=== PATIENT | female | born 1995 | race Caucasian/White ===

== ENCOUNTER 2017-07-27 22:30 | Emergency (ER) | payer SELFPAY ==
[2017-07-28 00:17] VITALS: BP 136/73; PULSE 58; TEMP 98.6; BMI 30.4
--- NOTE | 2017-07-28 01:00 | PDOC ---
History of Present Illness <Melva Barahona - Last Filed: 07/28/17 00:57> - General History Source: Patient Exam Limitations: No Limitations - History of Present Illness Initial Comments: 07/28/17 01:01 The patient is a 22-year-old female with no significant past medical history, and presents to the emergency department with abdominal pain since yesterday. She reports the abdominal pain is located in the epigastric region, 5/10 in severity, and worsened when eating. She suspects she may be , as her LMP was on 06/16/17. She also notes of right-sided back pain on Friday before the abdominal pain started. The patient denies chest pain, shortness of breath, headache and dizziness. The patient denies fever, chills, nausea, vomit, diarrhea and constipation. The patient denies dysuria, frequency, urgency and hematuria. LMP: 06/16/17 Allergies: NKDA Past Surgical History: None reported Social History: No toxic habits reported <Leslie Boyd - Last Filed: 07/28/17 01:22> <Madeleine Jean-Baptiste - Last Filed: 07/28/17 02:29> - General Chief Complaint: Pain Stated Complaint: STOMACH PAIN Time Seen by Provider: 07/28/17 00:52 Past History - Suicide/Smoking/Psychosocial Hx Smoking History: Never smoked Have you smoked in the past 12 months: No Information on smoking cessation initiated: No Hx Alcohol Use: No Drug/Substance Use Hx: No Substance Use Type: None <Melva Barahona - Last Filed: 07/28/17 00:57> <Leslie Boyd - Last Filed: 07/28/17 01:22> <Madeleine Jean-Baptiste - Last Filed: 07/28/17 02:29> - Past Medical History Allergies/Adverse Reactions: Allergies Allergy/AdvReac Type Severity Reaction Status Date / Time No Known Allergies Allergy Verified 07/28/17 00:15 Home Medications: Ambulatory Orders Cephalexin [Keflex] 500 mg PO BID #14 capsule 06/27/16 Review of Systems - Review of Systems Able to Perform ROS?: Yes Comments:: GENERAL/CONSTITUTIONAL: No fever or chills. No weakness. HEAD, EYES, EARS, NOSE AND THROAT: No change in vision. No ear pain or discharge. No sore throat. CARDIOVASCULAR: No chest pain or shortness of breath. RESPIRATORY: No cough, wheezing, or hemoptysis. GASTROINTESTINAL: +Suprapubic pain, +nausea. No vomiting, diarrhea or constipation. GENITOURINARY: No dysuria, frequency, or change in urination. MUSCULOSKELETAL: No joint or muscle swelling or pain. No neck or back pain. SKIN: No rash NEUROLOGIC: No headache, vertigo, loss of consciousness, or change in strength/ sensation. ENDOCRINE: No increased thirst. No abnormal weight change. HEMATOLOGIC/LYMPHATIC: No anemia, easy bleeding, or history of blood clots. ALLERGIC/IMMUNOLOGIC: No hives or skin allergy. <Melva Barahona - Last Filed: 07/28/17 00:57> - Review of Systems Able to Perform ROS?: Yes <Leslie Boyd - Last Filed: 07/28/17 01:22> *Physical Exam - Vital Signs Last Vital Signs Temp Pulse Resp BP Pulse Ox 98.6 F 58 L 12 136/73 100 07/28/17 00:15 07/28/17 00:15 07/28/17 00:15 07/28/17 00:15 07/28/17 00:15 - Physical Exam Comments: GENERAL: Awake, alert, and fully oriented, in no acute distress HEAD: No signs of trauma EYES: PERRLA, EOMI, sclera anicteric, conjunctiva clear ENT: Auricles normal inspection, hearing grossly normal, nares patent, oropharynx clear without exudates. Moist mucosa NECK: Normal ROM, supple, no lymphadenopathy, JVD, or masses LUNGS: Breath sounds equal, clear to auscultation bilaterally. No wheezes, and no crackles HEART: Regular rate and rhythm, normal S1 and S2, no murmurs, rubs or gallops ABDOMEN: Soft, mild suprapubic/LLQ tenderness, normoactive bowel sounds. No guarding, no rebound. No masses EXTREMITIES: Normal range of motion, no edema. No clubbing or cyanosis. No cords, erythema, or tenderness NEUROLOGICAL: Cranial nerves II through XII grossly intact. Normal speech, normal gait SKIN: Warm, Dry, normal turgor, no rashes or lesions noted. <Melva Barahona - Last Filed: 07/28/17 00:57> - Vital Signs Last Vital Signs Temp Pulse Resp BP Pulse Ox 98.6 F 58 L 12 136/73 100 07/28/17 00:15 07/28/17 00:15 07/28/17 00:15 07/28/17 00:15 07/28/17 00:15 <Leslie Boyd - Last Filed: 07/28/17 01:22> - Vital Signs Last Vital Signs Temp Pulse Resp BP Pulse Ox 98.6 F 58 L 12 136/73 100 07/28/17 00:15 07/28/17 00:15 07/28/17 00:15 07/28/17 00:15 07/28/17 00:15 <Madeleine Jean-Baptiste - Last Filed: 07/28/17 02:29> ED Treatment Course - ADDITIONAL ORDERS Additional order review: Laboratory Results 07/28/17 00:51 Urine Color Yellow Urine Appearance Slcloudy Urine pH 6.0 Urine Protein Negative Urine Glucose (UA) Negative Urine Ketones 1+ H Urine Blood Negative Urine Nitrite Negative Urine Bilirubin Negative Urine Urobilinogen Negative Urine HCG, Qual Positive <Madeleine Jean-Baptiste - Last Filed: 07/28/17 02:29> Medical Decision Making - Medical Decision Making 07/28/17 02:27 Patient Name: ULISSES ASHBY THIS IS A PRELIMINARY REPORT FROM [facility] DATE OF SERVICE: 2017-07-28 01:21:53 IMAGES: 58 EXAM: US OBSTETRIC HISTORY:Abdominal pain COMPARISON: None. FINDINGS:There is a single intrauterine gestation. Estimated gestational age is 8 weeks and 6 days. cardiac activity is documented at 159 beats per minute. Right ovary measures 3.0 cm. Left ovary measures 3.6 cm. There is vascular activity bilaterally IMPRESSION: Live intrauterine gestation at 8 weeks and 6 days <Madeleine Jean-Baptiste - Last Filed: 07/28/17 02:29> *DC/Admit/Observation/Transfer <Melva Barahona - Last Filed: 07/28/17 00:57> - Attestations Scribe Attestion: 07/28/17 01:22 Documentation prepared by Leslie Boyd, acting as medical coding instructor for Melav Barahona MD. <Leslie Boyd - Last Filed: 07/28/17 01:22> - Discharge Dispostion Admit: No <Madeleine Jean-Baptiste - Last Filed: 07/28/17 02:29> Diagnosis at time of Disposition: Abdominal pain affecting - Discharge Dispostion Disposition: HOME Condition at time of disposition: Stable - Patient Instructions Printed Discharge Instructions: DI for Abdominal Pain -- Early
[2017-07-28 01:07] LABS: URINE APPEARANCE SLCLOUDY; URINE BILIRUBIN NEGATIVE (NEGATIVE); URINE BLOOD NEGATIVE (NEGATIVE); URINE COLOR YELLOW; URINE GLUCOSE (UA) NEGATIVE (NEGATIVE); URINE KETONE 1+ (NEGATIVE); URINE NITRITE NEGATIVE (NEGATIVE); URINE PROTEIN NEGATIVE (NEGATIVE); URINE UROBILINOGEN NEGATIVE mg/dL (0.2-1.0)
[2017-07-28 11:44] LABS: URINE LEUK ESTERASE Negative (NEGATIVE)
== END 2017-07-28 03:01 | disposition home or self-care (01) ==
LOC: JER 22:30
DX: O26.91 Pregnancy related conditions, unspecified, first trimester (principal); Z3A.08 8 weeks gestation of pregnancy; R10.9 Unspecified abdominal pain
CPT/HCPCS: 36415; 76817-TC; 81003; 84702; 84703; 99282-25

== ENCOUNTER 2018-03-02 11:47 | Inpatient (IN) | payer OTHER ==
[2018-03-02 13:10] LABS: ACTIVATED PTT 27.1 SECONDS (26.9-34.4)
[2018-03-02 13:17] LABS: ANION GAP 6 (8-16); BLOOD UREA NITROGEN 5 mg/dL (7-18); CHLORIDE 108 mmol/L (98-107); CO2 25 mmol/L (21-32); CREATININE 0.5 mg/dL (0.55-1.02); GLUCOSE,RANDOM 78 mg/dL (74-106); POTASSIUM 4.2 mmol/L (3.5-5.1); SODIUM 139 mmol/L (136-145)
[2018-03-02 13:24] LABS: BASO % 0.3 % (0-2.0); EOS % 1.1 % (0-4.5); HEMATOCRIT 34.2 % (32.4-45.2); HEMOGLOBIN 11.5 GM/dL (10.7-15.3); LYMPH % 22.3 % (8-40); MCHC 33.6 g/dl (32.0-36.0); MEAN CELL VOLUME 89.2 fl (80-96); MEAN PLT VOLUME 7.9 fl (7.5-11.1); MONO % 7.7 % (3.8-10.2); NEUT % 68.6 % (42.8-82.8); PLATELET COUNT 209 K/MM3 (134-434); RBC 3.83 M/mm3 (3.60-5.2); RDW 13.9 % (11.6-15.6); WHITE BLOOD COUNT 6.5 K/mm3 (4.0-10.0)
[2018-03-02 13:42] LABS: INR 0.91 (0.82-1.09); PROTHROMBIN TIME (PATIENT) 10.3 SEC (9.7-13.0)
[2018-03-02 14:11] VITALS: BMI 30.2
[2018-03-02] MEDS ORDERED: DINOPROSTONE 10 MG VAGINAL SUPPOSITORY VG ONE (15:10)
[2018-03-02] MEDS ORDERED: DEXTROSE 5%-LACTATED RINGERS 1,000 ML IV ONE (15:30)
[2018-03-02] MEDS ORDERED: ACETAMINOPHEN 325 MG TABLET (FP) ONE (16:57)
[2018-03-02] MEDS ORDERED: ACETAMINOPHEN 325 MG TABLET (FP) PO ONE (17:00)
[2018-03-02] MEDS: DEXTROSE 5%-LACTATED RINGERS 1,000 ML IV SCH (18:30)
--- NOTE | 2018-03-02 18:34 | HP ---
Past Medical History - Admission Chief Complaint: Low fluid History of Present Illness: 22 yo , LMP 05/26/17, EDC 03/02/18, seen for sonogram today and was found to have low YUE. She was admitted for induction of labor at 40 weeks. History Source: Patient Limitations to Obtaining History: No Limitations - Past Medical History ...: 2 ...Para: 0 ...Term: 0 ...: 0 ...Spon : 0 ...Induced : 1 ...Multiple Gestation: 0 ...LMP: 05/26/17 ...EDC by Sono: 03/02/18 - Past Surgical History Past Surgical History: Yes: None Hx Myomectomy: No Hx Transabdominal Cerclage: No - Smoking History Smoking history: Never smoked Have you smoked in the past 12 months: No - Alcohol/Substance Use Hx Alcohol Use: No - Social History History of Recent Travel: No Home Medications - Allergies Allergies/Adverse Reactions: Allergies Allergy/AdvReac Type Severity Reaction Status Date / Time No Known Allergies Allergy Verified 03/02/18 14:34 - Home Medications Home Medications: Ambulatory Orders Vit 108/Iron/Folic AC [ One Tablet] 1 tablet PO DAILY 03/02/18 Valacyclovir HCl [Valtrex] 500 mg PO DAILY 03/02/18 Review of Systems - Review of Systems Constitutional: reports: No Symptoms Eyes: reports: No Symptoms HENT: reports: No Symptoms Neck: reports: No Symptoms Cardiovascular: reports: No Symptoms Respiratory: reports: No Symptoms Gastrointestinal: reports: No Symptoms Genitourinary: reports: No Symptoms Breasts: reports: No Symptoms Reported Musculoskeletal: reports: No Symptoms Integumentary: reports: No Symptoms Neurological: reports: No Symptoms Endocrine: reports: No Symptoms Hematology/Lymphatic: reports: No Symptoms Psychiatric: reports: No Symptoms Pain Intensity: 2 Physical Exam - Maternity Vital Signs: Vital Signs Temperature 98.2 F 03/02/18 17:00 Pulse Rate 63 03/02/18 17:00 Respiratory Rate 20 03/02/18 17:00 Blood Pressure 102/63 03/02/18 17:00 O2 Sat by Pulse Oximetry (%) Constitutional: Yes: Well Nourished Eyes: Yes: Conjunctiva Clear HENT: Yes: Atraumatic Neck: Yes: Supple Cardiovascular: Yes: Regular Rate and Rhythm Lungs: Clear to auscultation - Abdominal Exam/OB Number of Fetuses: Single Presentation: Vertex - Vaginal Exam/OB Dilatation (cm): 0 Presentation: Vertex/Position - Physical Exam Integumentary: Yes: WNL ...Motor Strength: WNL Psychiatric: Yes: Alert, Oriented - Labs Lab Results: CBC, BMP 03/02/18 12:25 03/02/18 12:25 Problem List - Problems (1) Oligohydramnios antepartum Code(s): O41.00X0 - OLIGOHYDRAMNIOS, UNSP TRIMESTER, NOT APPLICABLE OR UNSP (2) 40 weeks gestation of Code(s): Z3A.40 - 40 WEEKS GESTATION OF Assessment/Plan IUP @ 40 weeks Oligohydramnios Cervidil induction
[2018-03-02] MEDS ORDERED: BUTORPHANOL TARTRATE 1 MG/ML VIAL ONE ×2 (21:57)
[2018-03-02] MEDS ORDERED: PROMETHAZINE HCL 25 MG/1 ML VIAL ONE (21:58)
[2018-03-02] MEDS: BUTORPHANOL TARTRATE 1 MG/ML VIAL IVPUSH PRN (22:15)
[2018-03-02] MEDS: PROMETHAZINE HCL 25 MG/1 ML VIAL IVPUSH PRN (22:15)
[2018-03-03] MEDS: DEXTROSE 5%-LACTATED RINGERS 1,000 ML IV SCH (01:00)
[2018-03-03] MEDS ORDERED: PROMETHAZINE HCL 25 MG/1 ML VIAL ONE (04:48)
[2018-03-03] MEDS ORDERED: BUTORPHANOL TARTRATE 1 MG/ML VIAL ONE ×2 (04:48)
[2018-03-03] MEDS: BUTORPHANOL TARTRATE 1 MG/ML VIAL IVPUSH PRN (04:50)
[2018-03-03] MEDS: PROMETHAZINE HCL 25 MG/1 ML VIAL IVPUSH PRN (04:50)
[2018-03-03] MEDS ORDERED: OXYTOCIN 30 UNITS in 0.9% NS 30 UNIT/500 ML INFUS.BAG IVPB SCH (06:10)
[2018-03-03] MEDS ORDERED: OXYTOCIN 20 UNITS in 0.9% NS 20 UNIT/1,000 ML INFUS.BAG IV ONE (06:13)
--- NOTE | 2018-03-03 06:17 | PN ---
Progress Note (short form) - Note Progress Note: Patient seen and evaluated, she's lying comfortably in bed. She's status post cervidil. FHR : Reassuring [place] : + regular contractions VE : / -1 Intact A / P : Oligo hydramnios S/P cervidil induction Pitocin augmentation Analgesia as needed Anticipate Problem List - Problems (1) Oligohydramnios antepartum Code(s): O41.00X0 - OLIGOHYDRAMNIOS, UNSP TRIMESTER, NOT APPLICABLE OR UNSP (2) 40 weeks gestation of Code(s): Z3A.40 - 40 WEEKS GESTATION OF
[2018-03-03] MEDS ORDERED: FENTANYL/BUPIVACAINE/NS/PF - PCEA - 50 ML DISP.SYRIN EP ONE ×2 (08:04→12:27)
[2018-03-03] MEDS ORDERED: NALOXONE HCL 0.4 MG/ML VIAL IVPUSH PRN (11:14)
[2018-03-03] MEDS ORDERED: FENTANYL/BUPIVACAINE/NS/PF - PCEA - 50 ML DISP.SYRIN EP SCH ×2 (11:15→11:30)
[2018-03-03] MEDS ORDERED: LIDOCAINE HCL 1% PRESERVATIVE FREE - 30ML VIAL ONE (13:13)
[2018-03-03] MEDS ORDERED: BENZOCAINE 20% 57 GM BOTTLE TP PRN (13:56)
[2018-03-03] MEDS ORDERED: WITCH HAZEL 50% (TUCKS) 40 PAD/JAR PAD TP PRN (13:56)
[2018-03-03] MEDS ORDERED: BISACODYL 10 MG SUPP.RECT RC PRN (13:56)
[2018-03-03] MEDS ORDERED: METHYLERGONOVINE MALEATE 0.2 MG/1 ML AMP IM PRN (13:56)
[2018-03-03] MEDS ORDERED: oxyCODONE HCL 5 MG TABLET PO PRN (13:56)
[2018-03-03] MEDS ORDERED: BENZOCAINE 28 GM HEMORRHOIDAL OINTMENT TP PRN (13:56)
[2018-03-03] MEDS ORDERED: D5W-LR W/ 20 UNITS OXYTOCIN 20 UNIT/1,000 ML INFUS.BAG IV SCH (14:00)
[2018-03-03 14:13] LABS: VENOUS PH 7.32 (7.32-7.42)
[2018-03-03 14:14] LABS: ARTERIAL BLD GAS O2 SATURATION 30.6 % (90-98.9); ARTERIAL BLOOD GAS BASE EXCESS -6.7 meq/l (-2-2); ARTERIAL BLOOD GAS PCO2 68.8 mmHg (35-45); ARTERIAL BLOOD GAS PO2 21.4 mmHg (80-100); ARTERIAL BLOOD GAS pH 7.16 (7.35-7.45); VENOUS PC02 41.1 mmHg (38-52); VENOUS PO2 34.4 mmHg (28-48)
[2018-03-03] MEDS: ACETAMINOPHEN 325 MG TABLET (FP) PO PRN (20:58)
[2018-03-03] MEDS: IBUPROFEN 600 MG TABLET (FP) PO PRN (20:58)
[2018-03-03] MEDS: FERROUS SO4 325 MG TABLET (FP) PO SCH (21:00)
[2018-03-04] MEDS: ACETAMINOPHEN 325 MG TABLET (FP) PO PRN (08:33)
[2018-03-04] MEDS: IBUPROFEN 600 MG TABLET (FP) PO PRN ×2 (08:34→17:21)
--- NOTE | 2018-03-04 08:34 | PN ---
Post Progress Note - Subjective Subjective: c/o cramps, & perineal soreness Post Day: 1 Type of Delivery: Vital Signs: Vital Signs Temperature 97.7 F 03/04/18 06:00 Pulse Rate 71 03/04/18 06:00 Respiratory Rate 20 03/04/18 06:00 Blood Pressure 98/65 03/04/18 06:00 O2 Sat by Pulse Oximetry (%) 100 03/03/18 14:35 Breast Exam: Yes: Soft, Other (BF ). No: Engorged Uterus: Yes: Fundus Firm, Fundus below umbilicus, Non-tender Lochia: Yes: Rubra Lochia, amount: Moderate Extremities: Yes: Calves non-tender Perineum: Yes: Episiotomy (healing well ) Activity: Ambulating - Labs Labs: CBC WBC 6.5 K/mm3 (4.0-10.0) 03/02/18 12:25 RBC 3.83 M/mm3 (3.60-5.2) 03/02/18 12:25 Hgb 11.5 GM/dL (10.7-15.3) D 03/02/18 12:25 Hct 34.2 % (32.4-45.2) 03/02/18 12:25 MCV 89.2 fl (80-96) 03/02/18 12:25 MCH 30.0 pg (25.7-33.7) 03/02/18 12:25 MCHC 33.6 g/dl (32.0-36.0) 03/02/18 12:25 RDW 13.9 % (11.6-15.6) 03/02/18 12:25 Plt Count 209 K/MM3 (134-434) D 03/02/18 12:25 MPV 7.9 fl (7.5-11.1) 03/02/18 12:25 Neutrophils % 68.6 % (42.8-82.8) 03/02/18 12:25 Lymphocytes % 22.3 % (8-40) D 03/02/18 12:25 Monocytes % 7.7 % (3.8-10.2) 03/02/18 12:25 Eosinophils % 1.1 % (0-4.5) 03/02/18 12:25 Basophils % 0.3 % (0-2.0) 03/02/18 12:25 Problem List - Problems (1) care following vaginal delivery Code(s): Z39.2 - ENCOUNTER FOR ROUTINE FOLLOW-UP Assessment/Plan primigravda delivered Plan ct pp care discharge tomorrow cbc pending
[2018-03-04 08:56] LABS: BASO % 0.2 % (0-2.0); EOS % 0.7 % (0-4.5); HEMATOCRIT 30.2 % (32.4-45.2); HEMOGLOBIN 10.2 GM/dL (10.7-15.3); LYMPH % 19.7 % (8-40); MCH 30.9 pg (25.7-33.7); MCHC 33.7 g/dl (32.0-36.0); MEAN CELL VOLUME 91.7 fl (80-96); MONO % 7.7 % (3.8-10.2); NEUT % 71.7 % (42.8-82.8); PLATELET COUNT 165 K/MM3 (134-434); RBC 3.29 M/mm3 (3.60-5.2); RDW 14.3 % (11.6-15.6); WHITE BLOOD COUNT 9.3 K/mm3 (4.0-10.0)
[2018-03-04] MEDS: FERROUS SO4 325 MG TABLET (FP) PO SCH ×2 (09:15→21:36)
[2018-03-04] MEDS: PRENATAL VITAMINS W/ FOLIC ACID TABLET (FP) PO SCH (09:15)
[2018-03-04] MEDS ORDERED: SENNOSIDES/DOCUSATE COMBO (SENNA PLUS) TABLET (UD) PO PRN (22:00)
[2018-03-05] MEDS: ACETAMINOPHEN 325 MG TABLET (FP) PO PRN ×2 (00:01→06:34)
[2018-03-05] MEDS: IBUPROFEN 600 MG TABLET (FP) PO PRN ×2 (06:33)
[2018-03-05] MEDS: PRENATAL VITAMINS W/ FOLIC ACID TABLET (FP) PO SCH (09:47)
[2018-03-05] MEDS: FERROUS SO4 325 MG TABLET (FP) PO SCH (09:47)
[2018-03-05 10:30] VITALS: BP 109/70; PULSE 70; TEMP 98.5
--- NOTE | 2018-03-05 13:22 | DS ---
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 Vital Signs: Vital Signs Temperature 98.5 F 03/05/18 10:00 Pulse Rate 70 03/05/18 10:00 Respiratory Rate 20 03/05/18 10:00 Blood Pressure 109/70 03/05/18 10:00 O2 Sat by Pulse Oximetry (%) 100 03/03/18 14:35 Constitutional: Yes: Well Nourished, No Distress, Calm Eyes: Yes: WNL, Conjunctiva Clear, EOM Intact HENT: Yes: WNL, Atraumatic, Normocephalic Neck: Yes: WNL, Supple, Trachea Midline Cardiovascular: Yes: WNL, Regular Rate and Rhythm Respiratory: Yes: WNL, Regular, CTA Bilaterally Gastrointestinal: Yes: WNL ...Rectal Exam: Yes: WNL Renal/: Yes: WNL ....Post : Yes: Uterus firm, Uterus non-tender, Slight lochia rubra Breast(s): Yes: WNL Musculoskeletal: Yes: WNL Extremities: Yes: WNL Edema: No Integumentary: Yes: WNL Neurological: Yes: WNL, Alert, Oriented ...Motor Strength: WNL Psychiatric: Yes: WNL, Alert, Oriented Labs: CBC, BMP 03/04/18 08:00 03/02/18 12:25 Delivery - Delivery Vaginal Delivery: Spontaneous (no complication) Type of Anesthesia: Local, Epidural Episiotomy/Laceration: Midline EBL (cc): 300 Delivery, Single - Stages of Labor Date 1st Stage Initiatied: 03/02/18 Time 1st Stage Initiated: 10:15 Date 2nd Stage Initiated: 03/03/18 Time 2nd Stage Initiated: 13:05 Date of Delivery: 03/03/18 Time of Delivery: 13:37 Time Placenta Delivered: 13:52 Placenta: Yes: Spontaneous - 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 Infant Gender: Male Weight: 5 lb 15 oz Position: OA Total Hours ROM (Hrs/Mins): 3 hours 57 minutes - 1 Minute Total Score: 9 5 Minutes Total Score: 9 - Feeding Plan Initial Plan: Elected not to breastfeed exclusively throughout hospitalization Discharge Summary Reason For Visit: INDUCTION OF LABOR Current Active Problems 40 weeks gestation of (Acute) Oligohydramnios antepartum (Acute) care following vaginal delivery (Acute) Condition: Good - Instructions Referrals: Chano De Leon MD [Staff Physician] - Disposition: HOME - Home Medications Comprehensive Discharge Medication List: Ambulatory Orders Vit 108/Iron/Folic AC [ One Tablet] 1 tablet PO DAILY 03/02/18 Valacyclovir HCl [Valtrex] 500 mg PO DAILY 03/02/18 Ibuprofen [Motrin -] 600 mg PO QID #28 tablet 03/05/18
== END 2018-03-05 12:50 | disposition home or self-care (01) | DRG 560 ==
LOC: JLDR 11:47 → J3W 03-03 17:00
PROVIDERS: ADMIT Obstetrics & Gynecology; ATTEND Obstetrics & Gynecology
PROC: 3E0P7VZ Introduction of Hormone into Female Reproductive, Via Natural or Artificial Opening (ICD-10-PCS; 2018-03-02)
PROC: 0W8NXZZ Division of Female Perineum, External Approach (ICD-10-PCS; principal; 2018-03-03)
PROC: 10E0XZZ Delivery of Products of Conception, External Approach (ICD-10-PCS; 2018-03-03)
DX: O48.0 Post-term pregnancy (principal); Z3A.40 40 weeks gestation of pregnancy; Z37.0 Single live birth; O41.01X0 Oligohydramnios, first trimester, not applicable or unspecified
CPT/HCPCS: 36415; 36600; 59409; 71046-TC-FY; 80048; 82803; 85025; 85610; 85730; 86593; 86850; 86900; 86901

== ENCOUNTER 2018-07-10 08:35 | Emergency (ER) | payer OTHER ==
[2018-07-10 08:43] VITALS: BP 117/76; PULSE 71; TEMP 98.2; BMI 28.3
[2018-07-10] MEDS ORDERED: KETOROLAC TROMETHAMINE 30 MG/1 ML VIAL IVPUSH ONE (09:15)
[2018-07-10] MEDS ORDERED: SODIUM CHLORIDE 1,000 ML IV STA (09:16)
[2018-07-10] MEDS ORDERED: KETOROLAC TROMETHAMINE 30 MG/1 ML VIAL ONE (09:29)
[2018-07-10 09:48] LABS: BASO % 0.5 % (0-2.0); EOS % 2.4 % (0-4.5); HEMATOCRIT 37.2 % (32.4-45.2); HEMOGLOBIN 12.8 GM/dL (10.7-15.3); LYMPH % 32.1 % (8-40); MCH 29.6 pg (25.7-33.7); MCHC 34.3 g/dl (32.0-36.0); MEAN CELL VOLUME 86.3 fl (80-96); MEAN PLT VOLUME 8.2 fl (7.5-11.1); MONO % 8.6 % (3.8-10.2); NEUT % 56.4 % (42.8-82.8); PLATELET COUNT 263 K/MM3 (134-434); RBC 4.31 M/mm3 (3.60-5.2); RDW 12.7 % (11.6-15.6); WHITE BLOOD COUNT 6.2 K/mm3 (4.0-10.0)
--- NOTE | 2018-07-10 09:53 | PDOC ---
History of Present Illness - General Chief Complaint: Pain, Acute Stated Complaint: RT SIDE PAIN Time Seen by Provider: 07/10/18 09:09 History Source: Patient - History of Present Illness Timing/Duration: reports: constant Quality: reports: severe Abdominal Pain Onset Location: reports: RUQ Pain Radiation: reports: back Past History - Past Medical History Allergies/Adverse Reactions: Allergies Allergy/AdvReac Type Severity Reaction Status Date / Time No Known Allergies Allergy Verified 07/10/18 11:33 Home Medications: Ambulatory Orders Ibuprofen [Motrin -] 600 mg PO QID PRN 07/10/18 Asthma: No Cancer: No Cardiac Disorders: No COPD: No Diabetes: No HTN: No Seizures: No Thyroid Disease: No - Immunization History Immunization Up to Date: No - Suicide/Smoking/Psychosocial Hx Smoking History: Never smoked Have you smoked in the past 12 months: No Hx Alcohol Use: No Drug/Substance Use Hx: No Substance Use Type: None Hx Substance Use Treatment: No Review of Systems - Review of Systems Constitutional: No: Chills, Fever ABD/GI: Yes: Abdominal cramping. No: Blood Streaked Bowels, Diarrhea, Nausea, Rectal Bleeding, Vomiting : No: Dysuria, Discharge, Hematuria *Physical Exam - Vital Signs Last Vital Signs Temp Pulse Resp BP Pulse Ox 98.2 F 71 16 117/76 100 07/10/18 08:41 07/10/18 08:41 07/10/18 08:41 07/10/18 08:41 07/10/18 08:41 - Physical Exam General Appearance: Yes: Appropriately Dressed. No: Apparent Distress HEENT: positive: Normal Voice Neck: positive: Supple Respiratory/Chest: negative: Respiratory Distress Gastrointestinal/Abdominal: positive: Normal Bowel Sounds, Tender (to RUQ, neg murpehys), Soft. negative: Distended, Guarding, Rebound Musculoskeletal: negative: CVA Tenderness Integumentary: positive: Dry, Warm Neurologic: positive: Fully Oriented, Alert, Normal Mood/Affect ED Treatment Course - LABORATORY CBC & Chemistry Diagram: 07/10/18 09:20 07/10/18 09:20 - RADIOLOGY Radiology Studies Ordered: Category Date Time Status ABDOMEN US -LIMITED [US] Stat Ultrasound 07/10/18 09:16 Ordered - Medications Given in the ED: ED Medications Discontinued Medications Generic Name Dose Route Start Last Admin Trade Name Freq PRN Reason Stop Dose Admin Ketorolac Tromethamine 30 mg 07/10/18 09:15 07/10/18 09:34 Toradol Injection - IVPUSH 07/10/18 09:16 30 mg ONCE ONE Administration Medical Decision Making - Medical Decision Making 07/10/18 09:50 23 yo F, h/o gallstones on US in [place] 2 years ago, here w/ severe RUQ pain radiating to back that started this am. Took OTC w/ no relief. No n/v/f/c, change to BM, dysuria or vaginal discharge. States he has similar pain in the past but not this constant or severe See exam Biliary colic, r/o acute jesus -pain control -labs -US 07/10/18 11:48 Labs unremarkable. Ultrasound read as gallstones but no evidence of acute jesus. On reassessment, patient states pain has since resolved with toradol. Now informs me that she is currently breast-feeding. Will dc with instructions to take Tylenol as needed. Patient also reports that she has PMD appointment next week and will get referral for surgeon *DC/Admit/Observation/Transfer Diagnosis at time of Disposition: Biliary colic - Discharge Dispostion Disposition: HOME Condition at time of disposition: Improved - Referrals Referrals: Janett Gomez MD [Primary Care Provider] - - Patient Instructions Printed Discharge Instructions: DI for Biliary Colic Additional Instructions: Your workup in the ER reveals that you have gallstones. Take Tylenol as needed for pain and follow-up with your PMD next week for possible surgery referral Print Language: SPA - Post Discharge Activity
[2018-07-10 10:27] LABS: ALBUMIN 3.8 g/dl (3.4-5.0); ALK PHOS 118 U/L (45-117); ANION GAP 7 MMOL/L (8-16); BILIRUBIN,TOTAL 0.2 mg/dL (0.2-1); BLOOD UREA NITROGEN 12 mg/dL (7-18); CHLORIDE 108 mmol/L (98-107); CO2 26 mmol/L (21-32); CREATININE 0.5 mg/dL (0.55-1.3); GLUCOSE,RANDOM 99 mg/dL (74-106); LIPASE 139 U/L (73-393); POTASSIUM 4.3 mmol/L (3.5-5.1); SGOT/AST 22 U/L (15-37); SGPT/ALT 32 U/L (13-61); SODIUM 142 mmol/L (136-145); TOT PROT 7.6 g/dl (6.4-8.2)
[2018-07-10 11:07] LABS: URINE APPEARANCE CLEAR; URINE BILIRUBIN NEGATIVE (<2.0 mg/dL); URINE COLOR YELLOW; URINE GLUCOSE (UA) NEGATIVE (NEGATIVE); URINE KETONE NEGATIVE (NEGATIVE); URINE NITRITE NEGATIVE (NEGATIVE); URINE PROTEIN NEGATIVE (NEGATIVE)
[2018-07-10 11:20] LABS: URINE LEUK ESTERASE 3+ (NEGATIVE)
[2018-07-10 11:23] LABS: EPI CELLS RARE /HPF (FEW); URINE MUCUS MANY
== END 2018-07-10 11:55 | disposition home or self-care (01) ==
LOC: JER 08:35
PROC: 3E0333Z Introduction of Anti-inflammatory into Peripheral Vein, Percutaneous Approach (ICD-10-PCS; principal; 2018-07-10)
PROC: 3E0337Z Introduction of Electrolytic and Water Balance Substance into Peripheral Vein, Percutaneous Approach (ICD-10-PCS; 2018-07-10)
DX: K80.50 Calculus of bile duct without cholangitis or cholecystitis without obstruction (principal)
CPT/HCPCS: 36415; 76705-TC; 80053; 81003; 81015; 83690; 84703; 85025; 96361; 96374; 99282-25; J7030

== ENCOUNTER 2018-08-06 04:28 | Emergency (ER) | payer OTHER ==
--- NOTE | 2018-08-06 04:38 | PDOC ---
History of Present Illness - General Stated Complaint: PAIN LEFT SIDE Time Seen by Provider: 08/06/18 04:36 - History of Present Illness Initial Comments: 08/06/18 04:37 23 yo F with h/o cholelithiasis who p/w RUQ and epigastria abdominal pain. Patient reports acute onset of sharp, unremitting, RUQ abdominal pain, beginning at 1:00 AM. Pain non positional and non pleuritic. No identifiable alleviators. + nausea without vomiting beginning at time of abdominal pain. Normal stools and bowel habits. Reports eating "greasy food" this evening. Patient denies Palpitations, F/C, CP, SOB, urinary complaints, hematuria, diarrhea, constipation, BPR, lightheadedness, weakness, sensory changes. PMHx: as noted above Surgical: Denies h/o abdominal surgery ROS: as noted SHx: Denies Etoh, IVDA, tobacco use Allergies: NKDA Past History - Past Medical History Allergies/Adverse Reactions: Allergies Allergy/AdvReac Type Severity Reaction Status Date / Time No Known Allergies Allergy Verified 08/06/18 05:05 Home Medications: Ambulatory Orders Ibuprofen [Motrin -] 600 mg PO QID PRN 07/10/18 Ondansetron HCl [Zofran] 4 mg PO BID PRN #21 tablet MDD 2 tab 08/06/18 Ranitidine [Zantac -] 150 mg PO DAILY PRN #21 tablet MDD 2 tab 08/06/18 Asthma: No Cancer: No Cardiac Disorders: No COPD: No Diabetes: No HTN: No Seizures: No Thyroid Disease: No - Immunization History Immunization Up to Date: No - Suicide/Smoking/Psychosocial Hx Smoking History: Never smoked Have you smoked in the past 12 months: No Hx Alcohol Use: No Drug/Substance Use Hx: No Substance Use Type: None Hx Substance Use Treatment: No Review of Systems - Review of Systems Comments:: 08/06/18 04:37 GENERAL/CONSTITUTIONAL: No fever or chills. No weakness. HEAD, EYES, EARS, NOSE AND THROAT: No change in vision. No ear pain or discharge. No sore throat. CARDIOVASCULAR: No chest pain or shortness of breath RESPIRATORY: No cough, wheezing, or hemoptysis. GASTROINTESTINAL: + Abdominal pain, nausea, vomiting. No diarrhea or constipation. GENITOURINARY: No dysuria, frequency, or change in urination. MUSCULOSKELETAL: No joint or muscle swelling or pain. No neck or back pain. SKIN: No rash NEUROLOGIC: No headache, vertigo, loss of consciousness, or change in strength/ sensation. ENDOCRINE: No increased thirst. No abnormal weight change HEMATOLOGIC/LYMPHATIC: No anemia, easy bleeding, or history of blood clots. ALLERGIC/IMMUNOLOGIC: No hives or skin allergy. *Physical Exam - Physical Exam Comments: 08/06/18 04:38 GENERAL: Awake, alert, and fully oriented, in no acute distress HEAD: No signs of trauma, normocephalic, atraumatic EYES: PERRLA, EOMI, sclera anicteric, conjunctiva clear ENT: Hearing grossly normal, nares patent, oropharynx clear without exudates. Moist mucosa NECK: Normal ROM, supple, no lymphadenopathy, JVD, or masses LUNGS: No distress, speaks full sentences, clear to auscultation bilaterally HEART: Regular rate and rhythm, normal S1 and S2, no murmurs, rubs or gallops, peripheral pulses normal and equal bilaterally. ABDOMEN: + RUQ, and epigatsric ttp. Normoactive bowel sounds. No guarding, no rebound, no rigidity. No masses. Neg CVA ttp. EXTREMITIES : Normal inspection, Normal range of motion, no edema. No clubbing or cyanosis. SKIN: Warm, Dry, normal turgor, no rashes or lesions noted ED Treatment Course - LABORATORY CBC & Chemistry Diagram: 08/06/18 05:35 08/06/18 05:35 Medical Decision Making - Medical Decision Making 08/06/18 04:52 23 yo F with h/o cholelithiasis who p/w RUQ and epigastria abdominal pain. VSS, AF. + RUQ and epigastric ttp. Possible biliary dz. vs. gastritis, or pancreatitis. Low suspicion appendicitis, AAA, Ao dissection, mesenteric ischemia, ovarian pathology. Differential also includes colitis, gastroenteritis. Although unlikely will consider urinary pathology. Ed Course: CBC,CMP, Lipase, UA, HCG Maloox, Famotidine, Zofran, Tylenol, NS RUQ U/S 08/06/18 05:00 Ranitidine and Zofran sent to pharmacy 08/06/18 07:39 CBC, CMP, Lipase: Unremarkable Patient left AMA. Refused U/S despite conversation of risk and benefits. *DC/Admit/Observation/Transfer Diagnosis at time of Disposition: Epigastric abdominal pain - Discharge Dispostion Disposition: AGAINST MEDICAL ADVICE Condition at time of disposition: Stable - Prescriptions Prescriptions: Ondansetron HCl [Zofran] 4 mg PO BID PRN #21 tablet MDD 2 tab PRN Reason: Pain Ranitidine [Zantac -] 150 mg PO DAILY PRN #21 tablet MDD 2 tab PRN Reason: Pain - Referrals Referrals: Janett Gomez MD [Primary Care Provider] - Khoi Vaughn DO [Staff Physician] - - Patient Instructions Printed Discharge Instructions: DI for Epigastric Pain Additional Instructions: Please return to the emergency department with any new or worsening symptoms or concerns. Please follow up with your primary care physician within 72 hours. Please follow up with gastroenterology within one week. Please take medications (Ranitidine and Zofran) as prescribed. - Post Discharge Activity - Attestations Physician Attestion: 08/06/18 04:38 I attest to the information provided in this note.
[2018-08-06] MEDS ORDERED: ACETAMINOPHEN 1000 MG/100 ML VIAL (NON FORMULARY) IVPB ONE (04:47)
[2018-08-06] MEDS ORDERED: FAMOTIDINE 20 MG/50 ML IVPB 20 MG/50 ML MG IVPB ONE ×2 (04:47→05:30)
[2018-08-06] MEDS ORDERED: SODIUM CHLORIDE 500 ML IV STA (04:47)
[2018-08-06] MEDS ORDERED: ONDANSETRON 4 MG/2 ML VIAL IVPUSH ONE (04:47)
[2018-08-06] MEDS ORDERED: MAG HYDROX/AL HYDROX/SIMETH 30 ML UNIT-DOSE CUP PO ONE (04:47)
[2018-08-06] MEDS ORDERED: ACETAMINOPHEN INJECTION 100 ML IVPB ONE (05:04)
[2018-08-06] MEDS ORDERED: ONDANSETRON 4 MG/2 ML VIAL ONE (05:04)
[2018-08-06] MEDS ORDERED: MAG HYDROX/AL HYDROX/SIMETH 30 ML UNIT-DOSE CUP ONE (05:04)
[2018-08-06 05:06] VITALS: BP 110/81; PULSE 74; TEMP 98.4; BMI 29.2
[2018-08-06 06:02] LABS: BASO % 0.3 % (0-2.0); EOS % 2.1 % (0-4.5); HEMATOCRIT 35.5 % (32.4-45.2); LYMPH % 22.2 % (8-40); MCH 29.2 pg (25.7-33.7); MCHC 33.7 g/dl (32.0-36.0); MEAN CELL VOLUME 86.6 fl (80-96); MEAN PLT VOLUME 8.3 fl (7.5-11.1); MONO % 7.4 % (3.8-10.2); PLATELET COUNT 224 K/MM3 (134-434); RDW 12.6 % (11.6-15.6)
[2018-08-06 06:29] LABS: ALBUMIN 3.7 g/dl (3.4-5.0); ALK PHOS 113 U/L (45-117); ANION GAP 5 MMOL/L (8-16); BILIRUBIN,TOTAL 0.3 mg/dL (0.2-1); BLOOD UREA NITROGEN 14 mg/dL (7-18); CALCIUM 8.6 mg/dL (8.5-10.1); CHLORIDE 108 mmol/L (98-107); CO2 26 mmol/L (21-32); CREATININE 0.5 mg/dL (0.55-1.3); GLUCOSE,RANDOM 94 mg/dL (74-106); POTASSIUM 3.6 mmol/L (3.5-5.1); SGOT/AST 14 U/L (15-37); SGPT/ALT 27 U/L (13-61); SODIUM 139 mmol/L (136-145); TOT PROT 7.2 g/dl (6.4-8.2)
--- NOTE | 2018-08-06 07:31 | PDOC ---
Attending Attestation - Resident Resident Name: Mario Eagle - ED Attending Attestation I have performed the following: I have examined & evaluated the patient, The case was reviewed & discussed with the resident, I agree w/resident's findings & plan, Exceptions are as noted - HPI HPI: 08/06/18 07:30 This is a 23 yo F who presents to the ER with a complaint of RUQ pain Pt has had these symptoms in the past Had fatty dinner last night No fevers or chills - Physicial Exam PE: 08/06/18 07:31 GENERAL: Awake, alert, and fully oriented, in no acute distress LUNGS: No distress, speaks full sentences, clear to auscultation bilaterally HEART: Regular rate and rhythm, normal S1 and S2, no murmurs, rubs or gallops, peripheral pulses normal and equal bilaterally. ABDOMEN: + RUQ, and epigatsric ttp. Normoactive bowel sounds. No guarding, no rebound, no rigidity. No masses. Neg CVA ttp. EXTREMITIES : Normal inspection, Normal range of motion, no edema. No clubbing or cyanosis. 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 Will leave AMA 08/06/18 07:30 *DC/Admit/Observation/Transfer Diagnosis at time of Disposition: Epigastric abdominal pain - Discharge Dispostion Disposition: AGAINST MEDICAL ADVICE Condition at time of disposition: Stable Decision to Admit order: No - Prescriptions Prescriptions: Ondansetron HCl [Zofran] 4 mg PO BID PRN #21 tablet MDD 2 tab PRN Reason: Pain Ranitidine [Zantac -] 150 mg PO DAILY PRN #21 tablet MDD 2 tab PRN Reason: Pain - Referrals Referrals: Khoi Vaughn DO [Staff Physician] - Janett Gomez MD [Primary Care Provider] - - Patient Instructions Printed Discharge Instructions: DI for Epigastric Pain Additional Instructions: Please return to the emergency department with any new or worsening symptoms or concerns. Please follow up with your primary care physician within 72 hours. Please follow up with gastroenterology within one week. Please take medications (Ranitidine and Zofran) as prescribed. - Post Discharge Activity
[2018-08-06 07:47] LABS: HCG,QUALITATIVE URINE Negative
[2018-08-06 08:16] LABS: URINE APPEARANCE CLEAR; URINE BILIRUBIN NEGATIVE (<2.0 mg/dL); URINE COLOR YELLOW; URINE GLUCOSE (UA) NEGATIVE (NEGATIVE); URINE KETONE NEGATIVE (NEGATIVE); URINE LEUK ESTERASE 2+ (NEGATIVE); URINE NITRITE NEGATIVE (NEGATIVE); URINE PROTEIN NEGATIVE (NEGATIVE); URINE UROBILINOGEN NEGATIVE mg/dL (0.2-1.0)
[2018-08-06 08:20] LABS: EPI CELLS RARE /HPF (FEW); URINE MUCUS MODERATE
== END 2018-08-06 07:35 | disposition left against medical advice (07) ==
LOC: JER 04:28
PROC: 3E033GC Introduction of Other Therapeutic Substance into Peripheral Vein, Percutaneous Approach (ICD-10-PCS; principal; 2018-08-06)
PROC: 3E033NZ Introduction of Analgesics, Hypnotics, Sedatives into Peripheral Vein, Percutaneous Approach (ICD-10-PCS; 2018-08-06)
DX: R10.13 Epigastric pain (principal); Z87.19 Personal history of other diseases of the digestive system
CPT/HCPCS: 36415; 80053; 81003; 81015; 83690; 84703; 85025; 99282-25; J0131

== ENCOUNTER 2019-05-07 14:26 | Emergency (ER) | payer OTHER ==
[2019-05-07 14:33] VITALS: BP 118/73; PULSE 98; TEMP 97.8; BMI 30.2
--- NOTE | 2019-05-07 14:34 | PDOC ---
Rapid Medical Evaluation Time Seen by Provider: 05/07/19 14:30 Medical Evaluation: Allergies Allergy/AdvReac Type Severity Reaction Status Date / Time No Known Allergies Allergy Verified 08/06/18 05:05 05/07/19 14:30 I have performed a brief in-person evaluation of this patient. The patient presents with a chief complaint of: burn to L foot 2/2 hot coffee spilling onto foot while at work at [employer] this am Pertinent physical exam findings:2nd degree burn to L foot I have ordered the following:nothing The patient will proceed to the ED for further evaluation. Discharge Disposition - Diagnosis 2nd degree burn - Referrals - Patient Instructions - Post Discharge Activity
[2019-05-07] MEDS ORDERED: DIPHTH,PERTUSS(ACELL),TET 0.5 ML DISP.SYRIN IM ONE ×2 (14:41→14:43)
--- NOTE | 2019-05-07 14:58 | PDOC ---
History of Present Illness - General Chief Complaint: Burn Stated Complaint: BURN ON RT. FOOT Time Seen by Provider: 05/07/19 14:30 History Source: Patient Exam Limitations: No Limitations Past History - Past Medical History Allergies/Adverse Reactions: Allergies Allergy/AdvReac Type Severity Reaction Status Date / Time No Known Allergies Allergy Verified 05/07/19 14:33 Home Medications: Ambulatory Orders Ibuprofen [Motrin -] 600 mg PO QID PRN 07/10/18 Ondansetron HCl [Zofran] 4 mg PO BID PRN #21 tablet MDD 2 tab 08/06/18 Ranitidine [Zantac -] 150 mg PO DAILY PRN #21 tablet MDD 2 tab 08/06/18 Silver Sulfadiazine [Silvadene] 1 applic TP BID #1 cream..g. 05/07/19 Asthma: No Cancer: No Cardiac Disorders: No COPD: No Diabetes: No HTN: No Seizures: No Thyroid Disease: No - Immunization History Immunization Up to Date: No - Suicide/Smoking/Psychosocial Hx Smoking History: Never smoked Have you smoked in the past 12 months: No Hx Alcohol Use: No Drug/Substance Use Hx: No Substance Use Type: None Hx Substance Use Treatment: No *Physical Exam - Vital Signs Last Vital Signs Temp Pulse Resp BP Pulse Ox 97.8 F 98 H 18 118/73 100 05/07/19 14:30 05/07/19 14:30 05/07/19 14:30 05/07/19 14:30 05/07/19 14:30 - Physical Exam General Appearance: No: Apparent Distress Extremity: positive: Other (+second degree burn to dorsal aspect of L foot, + few tiny blisters and 1 large blister along lateral aspect of foot, +blanching of skin, no joints involved, burn is not circumferential) Neurologic: positive: Alert, Normal Mood/Affect ED Treatment Course - Medications Given in the ED: ED Medications Discontinued Medications Generic Name Dose Route Start Last Admin Trade Name Freq PRN Reason Stop Dose Admin Diphtheria/Tetanus/Acell Pertussis 0.5 ml 05/07/19 14:41 05/07/19 14:42 Boostrix - IM 05/07/19 14:42 0.5 ml .ONCE ONE Administration Medical Decision Making - Medical Decision Making 24 y/o F presents with burn along L foot after accidentally getting coffee spilled on it at work. Denies other injuries. Unsure of last tetanus L foot 2nd degree burn - 1.75% burn Tetanus updated Site covered with dry sterile dressing Will start on Silvadene and refer to burn center 05/07/19 14:53 *DC/Admit/Observation/Transfer Diagnosis at time of Disposition: 2nd degree burn - Discharge Dispostion Disposition: HOME Condition at time of disposition: Stable Decision to Admit order: No - Prescriptions Prescriptions: Silver Sulfadiazine [Silvadene] 1 applic TP BID #1 cream..g. - Referrals Referrals: [facility] [Outside] - 2 Days - Patient Instructions Printed Discharge Instructions: DI for [place], How to Take Care of a Burn Additional Instructions: Thank you for choosing [facility]. It was a pleasure taking care of you. Apply silvadene cream twice a day You can take Motrin 600 mg every 6 hours as needed for pain. Take with food Please follow-up in [place] outpatient burn center in 2 days: [phone] Return to the Emergency Department if your symptoms worsen or persist, you have fever, pustular discharge, redness, swelling or other concerning symptoms. - Post Discharge Activity
== END 2019-05-07 15:15 | disposition home or self-care (01) ==
LOC: JERFT 14:26
PROC: 2W2TX4Z Dressing of Left Foot using Bandage (ICD-10-PCS; principal; 2019-05-07)
PROC: 3E0234Z Introduction of Serum, Toxoid and Vaccine into Muscle, Percutaneous Approach (ICD-10-PCS; 2019-05-07)
DX: T25.222A Burn of second degree of left foot, initial encounter (principal); T31.0 Burns involving less than 10% of body surface; X10.0XXA Contact with hot drinks, initial encounter; Y93.89 Activity, other specified; Y92.511 Restaurant or cafe as the place of occurrence of the external cause; Y99.0 Civilian activity done for income or pay
CPT/HCPCS: 16020; 90471; 90715; 99281-25